=== PATIENT | female | born 1975 | race Caucasian/White ===

== ENCOUNTER 2023-04-02 12:56 | Outpatient (OUT) | payer OTHER, SELFPAY ==
--- NOTE | 2023-04-02 | XR_ITS ---
[place] [id number] Patient Name: ROBI HOBBS MRN: [id number] date: 1975 Sex: F Assigned Patient Location: [facility] Current Patient Location: [facility] Accession/Order Number: [id number] Exam Date: 04/02/2023 10:00 Report Date: 04/02/2023 11:40 At the request of: NIMISHA ZUÑIGA Procedure: XR foot MACIE min 3V STUDY: XR foot MACIE min 3V, [id number] HISTORY: BILATERAL FOOT PAIN COMPARISON: None FINDINGS: Right foot: No acute fracture, dislocation, or suspicious osseous lesion. No significant degenerative changes. Small plantar calcaneal spur. Left foot: No acute fracture, dislocation, or suspicious osseous lesion. No significant degenerative changes. Mild hallux valgus. Small plantar calcaneal spur. IMPRESSION: Bilateral plantar calcaneal spurs. Electronically authenticated by: ARACELI ROMERO Date: 04/02/2023 11:40
== END 2023-04-02 12:57 | disposition home or self-care (01) ==
LOC: RAD 12:58
PROVIDERS: Visit Provider Physician Assistant
DX: M79.673 Pain in unspecified foot (principal); M77.32 Calcaneal spur, left foot; M77.31 Calcaneal spur, right foot; M20.12 Hallux valgus (acquired), left foot
CPT/HCPCS: 73630